=== PATIENT | female | born 1955 | race Caucasian/White ===

== ENCOUNTER → 2016-12-10 | Outpatient (CLI) | payer MEDICARE, MEDICAID ==
[~2016-12-10] MED LIST: ALDACTONE DPS25 MG PO; ATIVAN-DPS0.5 MG SL; CALCIUM 500 +1 EACH PO; CALTRATE-600 W600 MG PO; CEFTIN DPS500 MG PO; CELEXA40 MG PO; CLEOCIN HCL300 MG PO; CULTURELLE1 CAP PO; DECADRON-DPS4 MG PO; DUONEB DPS3 ML IH; EFFEXOR XR75 MG PO; ESOMEPRAZOLE MA40 MG PO; FEOSOL-DPS325 MG PO; IMODIUM DPS2 MG PO; KEPPRA DPS500 MG PO; KLOR-CON M2020 ME1 PO; LASIX DPS40 MG PO; LEVAQUIN DPS750 MG PO; LIORESAL DPS20 MG IM; LIORESAL DPS20 MG PO; MAALOX DPS30 ML PO; MARYS PO; MELATONIN10 M2 PO; MIRAPEX0.125 MG PO; MYCELEX TROCHE10 MG PO; MYRBETRIQ50 MG PO; NAPROSYN DPS500 MG PO; NEOSPORIN-DPS15 GM TP; NEXIUM40 MG PO; OMNICEF DPS300 MG PO; PENICILLIN V P500 MG PO; PEPCID DPS20 MG PO; PROAIR RESPICL90 MCG IH; PROLIA60 MG/ML IM; PROTONIX40 MG PO; SURFAK DPS240 MG PO; TRIMPEX DPS100 MG PO; TYLENOL DP650 MG/20. PO; TYLENOL DPS325 MG PO; VIBRAMYCIN-DPS100 M2 PO; VITAMIN B-1000 MCG/1 IM; VITAMIN D31000 UNIT PO; ZAROXOLYN5 MG PO; ZOFRAN ODT4 MG PO; [UNRECOGNIZED DRUG - OTHER] SL
== END | disposition home or self-care (01) ==
LOC: RAD.S 08:00
DX: R13.10 Dysphagia, unspecified (principal); K22.2 Esophageal obstruction; G35 Multiple sclerosis

== ENCOUNTER 2017-01-03 08:42 | Day surgery (SDC) | payer MEDICARE, MEDICAID ==
[~2017-01-03] VITALS: Ht 149.9 cm; Wt 105.1 kg
[~2017-01-03 08:42] MED LIST changes: -ATIVAN-DPS0.5 MG SL; -DECADRON-DPS4 MG PO; -LIORESAL DPS20 MG IM; -MARYS PO; -ZOFRAN ODT4 MG PO; -[UNRECOGNIZED DRUG - OTHER] SL
[2017-02-09] MEDS ORDERED: LIORESAL DPS20 MG IM (10:06)
[2017-02-09] MEDS ORDERED: LIORESAL DPS20 MG PO (10:18)
[2017-02-09] MEDS ORDERED: DECADRON-DPS4 MG PO (10:20)
[2017-02-09] MEDS ORDERED: MARYS PO (10:21)
[2017-02-09] MEDS ORDERED: ATIVAN-DPS0.5 MG SL (10:22)
[2017-02-09] MEDS ORDERED: ZOFRAN ODT4 MG PO (10:22)
[2017-02-09] MEDS ORDERED: [UNRECOGNIZED DRUG - OTHER] SL (10:24)
== END 2017-01-03 13:20 | disposition home or self-care (01) ==
LOC: RAD.S 08:42 → EDSTATUS 10:00 → RAD.S 13:20
PROC: 0DH63UZ Insertion of Feeding Device into Stomach, Percutaneous Approach (ICD-10-PCS; principal; 2017-01-03)
DX: C15.5 Malignant neoplasm of lower third of esophagus (principal); K44.9 Diaphragmatic hernia without obstruction or gangrene; Z79.899 Other long term (current) drug therapy; Z88.2 Allergy status to sulfonamides; Z88.6 Allergy status to analgesic agent; Z88.1 Allergy status to other antibiotic agents

== ENCOUNTER 2017-01-29 08:07 | Inpatient (IN) | payer MEDICARE, MEDICAID ==
[~2017-01-29] VITALS: Ht 149.9 cm; Wt 123.9 kg
--- NOTE | ~2017-01-29 | ECH ---
Transthoracic Echocardiography Report (TTE) Demographics Patient Name JIMMY SANDERS Date of Study 01/31/2017 Patient Number [id number] Visit Number [id number] Date of 1955 Room Number 423 Gender Female Number Age 62 year(s) Referring Luz Lutz Director Of Dance Beatrice Cross [facility] Physician Physician Interpreting King Carroll Mcneil MD Service Tech/Welder Physician Supervising Ordering Luz Lutz MD/MLP Physician Nurse Stress Aircraft Worker Conclusions Summary Technically difficult exam to perform with limited windows available. The estimated left ventricular ejection fraction is 60-65%. Mild to moderate left ventricular hypertrophy. The right atrium is mildly dilated. Mild tricuspid regurgitation by color Doppler. Estimated pulmonary pressures within normal limits, Procedure Type of Study TTE procedure:Echo Complete SF. Procedure Date Date: 01/31/2017 Start: 11:08 AM Technical Quality: Limited visualization due to poor acoustical window. Indications:Atrial fibrillation. Appropriate Use Criteria: 9 Height: 59 inches Weight: 234 pounds BSA: 1.97 m Rhythm: Atrial fibrillation HR: 93 bpm BP: 89/47 mmHg M-Mode/2D Measurements LV Diastolic Dimension: 4.01 cm LV Systolic Dimension: 3.37 cm LV Septum Diastolic: 1.35 cm LV PW Diastolic: 1.23 cm AO Root Dimension: 2.8 cm Cardiac Output: 5.91 l/min LA Dimension: 3.32 cm Cardiac Index: 3 l/min*m LA volume index: 30 ml/m LVOT: 1.86 cm RV Base: 5 cm LVOT VTI: 23.39 cm RV Mid: 3.1 cm LV Stroke volume: 63.52 ml RV Length: 6 cm LV Stroke volume index: 32.24 ml/m Doppler Measurements AV Peak Velocity: 1.76 m/s MV Peak E-Wave: 0.87 m/s AV Peak Gradient: 12.39 mmHg MV Peak A-Wave: 0.89 m/s AV Mean Gradient: 7.93 mmHg MV E/A Ratio: 0.98 LVOT Peak Velocity: 1.32 m/s MV P1/2t: 69.7 msec AV Area (Continuity):1.95 cm MV Deceleration Time: 240.4 msec TR Velocity:2.74 m/s MV Area (PHT): 3.16 cm TR Gradient:29.98 mmHg Estimated RAP:5 mmHg Estimated PASP: 34.98 mmHg Estimated RVSP: 35 mmHg RA Area: 21.54 cm Findings Left Ventricle The left ventricle is normal in size . Mild to moderate left ventricular hypertrophy. Diastolic function indeterminate due to patient's arrhythmia. Right Ventricle Normal right ventricular size and function. Left Atrium Normal left atrial size. Right Atrium The right atrium is mildly dilated. Mitral Valve Normal mitral valve structure and function. Aortic Valve The aortic valve was not well imaged. Tricuspid Valve Normal appearing tricuspid valve. Mild tricuspid regurgitation by color Doppler. Pulmonic Valve The pulmonic valve is not well visualized. Pericardial Effusion No evidence of pericardial effusion. Miscellaneous Visualized portions of the aortic root and ascending aorta appear normal in size. Pleural Effusion No evidence of pleural effusion. Signature
--- NOTE | 2017-01-30 12:02 | HP ---
ADMIT: 01/29/2017 RM/LOC: 423 [facility] MR#: [id number] [address] [address] [place] [address] History and Physical SEX: F AGE: 62 : 1955 DATE OF SERVICE: 01/29/2017 CHIEF COMPLAINT: Fatigue, weakness, and fall with right arm pain. HISTORY OF PRESENT ILLNESS: Lillian is a 62-year-old, , white female, followed by Dr. Escobar, admitted to [facility] through the ER. She is currently residing at home, and is going through chemotherapy for esophageal cancer. She received her last chemo treatment within the last week. She states she has been getting fatigued and weak and went to get up and slipped out of bed, heard pop and has had pain in her right shoulder. She was seen in the ER, an x-ray was obtained, and no acute fractures were noted. Further evaluation showed severe hyponatremia with sodium 129, potassium 2.5 with pancytopenia. I was subsequently contacted to admit her for further evaluation and management. At this time, she denies any new concern. She just states she is too weak at this time to go home. PAST MEDICAL HISTORY: Rather complicated and includes a feeding tube with her esophageal cancer along with a suprapubic catheterization for neurogenic bladder in the right port. She has had prior total abdominal hysterectomy, bilateral salpingo-oophorectomy for benign reasons, cholecystectomy, bilateral cataracts, vertebroplasty, right total knee, prior colon polyps, and urethroplasty. Illnesses include current esophageal carcinoma followed by Oncology locally, multiple sclerosis, morbid obesity, neurogenic bladder, compression fractures, lumbar spine, vitamin D deficiency, osteoporosis, Aktvkny-Wvduq-Uabdj syndrome, prior pulmonary embolisms, etc. MEDICATIONS: Listed in the chart. Please see a copy of her med list. Please copy of her med list dictation at this time. Most recent med list that I have is: 1. Effexor XR 75 mg daily. 2. Trimethoprim 100 mg daily. 3. Surfak 240 mg b.i.d. 4. Proventil 2 puffs p.o. q.i.d. p.r.n. 5. Pramipexole dihydrochloride 0.125 mg two t.i.d. 6. Potassium 20 mEq b.i.d. 7. Protonix 40 mg b.i.d. 8. Os-Sha 500 mg b.i.d. 9. Baclofen 20 mg five times daily. 10.Citalopram 40 mg daily. 11.Calcitonin 200 units one spray in alternating nostril daily. 12.Culturelle capsule once daily. 13.Ferrous sulfate 325 mg daily. 14.Lasix 80 mg b.i.d. 15.Vitamin D 1000 units 2 t.i.d. 16.Keppra 500 mg in the morning and 1000 mg at bedtime. 17.Melatonin 10 mg at bedtime. 18.Myrbetriq 50 mg daily. ADMIT: 01/29/2017 RM/LOC: 423 [facility] MR#: [id number] [facility] [address] [address] LILLIAN SANDERS [address] [place] [address] History and Physical SEX: F AGE: 62 : 1955 19.Naproxen 500 mg daily. ALLERGIES: CURRENTLY INCLUDE ADVAIR, CODEINE, ERYTHROPOIETIN, AND SULFA. SOCIAL HISTORY: That of a 62-year-old, , white female. She quit smoking around 3 years ago. She has a history of alcohol use disorder in remission for 40 years. She is wheelchair bound from her multiple sclerosis, has a baclofen pump, is followed by Jammie Hoyos for multiple sclerosis. FAMILY HISTORY: Includes coronary disease, thyroid disease, hypertension, osteoarthritis, colon cancer, Alzheimer's, and stroke. REVIEW OF SYSTEMS: As noted above. Remainder review of systems is negative. PHYSICAL EXAMINATION: VITAL SIGNS: Pulse of 56, blood pressure 104/84, she is currently afebrile with a sat of 93% on room air. Respiratory rate 16, heart rate 78. GENERAL APPEARANCE: Is that of a 62-year-old, morbidly obese white female, who appears much older than stated age. She has numerous bruises and evidence of severe venous insufficiency, lymphedema in her lower extremities, lying in hospital bed. She has moderate hair loss from her chemo. HEENT: Pupils are reactive. Membranes are moist. NECK: Supple. HEART: Regular with a grade 3-4/6 systolic murmur. LUNGS: Clear. ABDOMEN: Morbidly obese and benign. She has a right-sided port, a feeding tube and suprapubic catheter. EXTREMITIES: Reveal 3 to 4+ edema with bruising. No clubbing or cyanosis. NEUROLOGIC: Grossly normal light touch DTRs. LABORATORY AND X-RAY DATA: Sodium of 129, potassium 2.5, BUN of 49, creatinine 1.4 with glucose of 115, albumin is 3.2 with a total protein 5.8, AST is normal at 14, ALT normal at 19, white count of 0.9, hemoglobin 11.3, and platelet count 30,000. UA was not done. X-ray of the right humerus shows no acute fractures. 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 Please note, she additionally has venous insufficiency, mild malnutrition, and generalized fatigue and weakness. PLAN: We will start potassium and sodium replacement therapy. We will inform Oncology of admission, place her on DNR/DNI with POLST form per discussions as per patient request. We will proceed with further evaluation and management based on course during hospitalization. Please see her hospital record for the details. Tyson Fofana MD/ varsha JOB #: [id number] CC: Arnoldo Escobar, Attending Physician Arnoldo Escobar, Family Physician
--- NOTE | 2017-02-05 08:39 | ER ---
ADMIT: 01/29/2017 RM/LOC: 423 [facility] MR#: [id number] [id number] [place], [place] [address] JIMMY SANDERS [facility] [place] [address] Emergency Room Report SEX: F AGE: 62 : 1955 DATE: 01/29/2017 This 62-year-old female with esophageal cancer receiving radiation and chemotherapy, slid out of bed and landed on her right arm. She comes to the Emergency Department with complaints of right arm pain. She seems to be increasingly weak since receiving her chemo and radiation. She last saw Dr. Lopez this past Tuesday. She states other than weakness, she has been doing fine. She does have a diminished appetite. She denies fever, chills. No cough or cold. Merely complaining of pain in the right arm. PHYSICAL EXAMINATION: GENERAL: Reveals a 62-year-old female with ecchymotic areas across her entire body. She has a suprapubic catheter in place. LUNGS: Clear to auscultation. CARDIOVASCULAR: Bradycardic and irregular with a 3/6 systolic ejection murmur. ABDOMEN: Soft, nontender. EXTREMITIES: Significant for tenderness in the right arm. SKIN: As mentioned ecchymotic areas throughout. X-ray of the arm was negative. When I went in to speak with the patient, I was concerned about her ability to return home though that was her desire. Because of her increasing weakness and her now arrives, he is not certain he could lift her if she were to go to the floor again. Therefore CBC and CMP were obtained, the results of which were significant for a white count of 900, hemoglobin 11.3, and platelets 30,000. Sodium was 129, creatinine is 1.4, potassium 2.5, BUN of 49, and albumin 3.2. The patient was discussed with Dr. Fofana, he did see the patient in the Emergency Department, admitting the patient for acute renal failure, hyponatremia, hypokalemia, thrombocytopenia, neutropenia, and increasing weakness. Curtis Boone MD/ varsha JOB #: [id number] CC: Arnoldo Escobar MD, Attending Physician Arnoldo Escobar MD, Family Physician
--- NOTE | 2017-02-08 15:35 | CO ---
ADMIT: 01/29/2017 RM/LOC: [address] [facility] MR#: [id number] [id number] [place], [place] [address] [place] [address] Consultation SEX: F AGE: 62 : 1955 DATE OF CONSULTATION: 02/02/2017 ATTENDING PHYSICIAN: Arnoldo Escobar CONSULTING PHYSICIAN: Randy Rosales MD LOCATION OF SERVICE: [facility]. REASON FOR CONSULTATION: Dr. Escobar has requested our consultation for vocational guidance counselor, coordination of goals and options of care. HISTORY OF PRESENT ILLNESS: This is a pleasant 62-year-old elderly female, who was admitted through the Emergency Department on 01/29/2017 with fatigue, weakness, and a fall with right upper arm pain. She does carry a chronic diagnosis of multiple sclerosis and she is wheelchair bound functional status and does have a baclofen pump. She follows with Dr. Jammie Hill. She also has a known diagnosis of esophageal cancer, originally diagnosed November [address] Lopez. Her last chemotherapy treatment was reported to have occurred on January 25, 2017, and after she received this, she states she was getting fatigued and weak and slipped out of bed and fell and heard a pop and had right shoulder pain. In the Emergency Department, x-ray was obtained which was negative for acute fractures. Upon further evaluation, she was found to be severely hyponatremic with a sodium 129, potassium 2.5 and pancytopenia. She developed hypotension and acute hypoxia. She was admitted to our intensive care unit for further evaluation and treatment. She has been started on vasopressors with Levophed. Antibiotic therapy has been started as it is found that she has urinary tract infection. Urine culture on January 29 reveals E. coli and Klebsiella pneumoniae. There was also concern of pneumonia. We were requested for consultation to further review goals and options of care in light of failing health. Current functional state reflects a palliative performance score of 30. She is bed bound, unable to do any work, needing total care. Her intake is reduced. Her conscious level is full. She is alert and oriented x3. Prior to hospitalization her functional level reflects a palliative performance score of around 40. She spent most of the time in the bed or in a wheelchair. She is non ambulatory. She is unable to do any work, needing assistance with her self care. Her intake has been reduced. Her conscious level has been full. PAST MEDICAL HISTORY: Esophageal cancer, originally diagnosed in November 2016. She has had a feeding tube in place. She does have multiple sclerosis. She does have a neurogenic bladder with suprapubic catheterization in place. She has had a total abdominal hysterectomy, bilateral salpingo-oophorectomy for benign reasons, cholecystectomy, bilateral cataracts, vertebroplasty, right total knee repair, prior colon polyps, urethroplasty, morbidly obese, has had compression fractures in the lumbar spine, vitamin D deficiency, osteoporosis, Charcot Carito Tooth syndrome, history of pulmonary emboli. ADVANCED DIRECTIVE AND CODE STATUS: She is a do not resuscitate/do not ADMIT: 01/29/2017 RM/LOC: [address] [facility] MR#: [id number] [address] [place] [id number] JIMMY FELIPE [address] [place] [address] Consultation SEX: F AGE: 62 : 1955 intubate status. Her healthcare [id number]-vdzycuim is her spouse Willis Felipe his #[phone]. She reports she has completed this document, however, I do not have a copy of it at this time. SOCIAL HISTORY: She lives with her , Willis. She does have 4 children. She is Denominational. She has a history of smoking, quit around 3 years ago. She does have a history of alcohol use, in remission for 40 years. She does not report any cultural needs at this time. FAMILY HISTORY: Reviewed and noncontributory. CURRENT MEDICATIONS: Include: 1. Tysabri. 2. Solu-Cortef. 3. Zaroxolyn. 4. Effexor. 5. Trimpex. 6. Aldactone. 7. Myrbetriq. 8. Lasix. 9. Celexa. 10.Lioresal. 11.Ultram. 12.Tylenol. 13.Colace. 14.Omeprazole. 15.Mirapex. 16.Potassium. 17.Decadron. 18.Vitamin D. 19.Keppra. 20.Levophed. 21.DuoNeb. 22.Zosyn. 23.Levaquin. 24.Granix. 25.Proventil. 26.Heparin. 27.Maalox. 28.Normal saline. 29.Magnesium sulfate. ALLERGIES: SULFA, CODEINE, AND ERYTHROMYCIN. REVIEW OF SYSTEMS: A 10-point review of system was conducted, however, was unremarkable except as noted in HPI and PMH. PHYSICAL EXAMINATION: CONSTITUTIONAL: Weight, height, and BMI is within ADMIT: 01/29/2017 RM/LOC: [address] [facility] MR#: [id number] [facility] [address] [address] JIMMY FELIPE [address] [place] [address] Consultation SEX: F AGE: 62 : 1955 medical record. GENERAL STATUS: This is a pleasant, , elderly female, who appears older than stated age in no acute distress. Alert and oriented, able to participate fully in consultation at this time. VITAL SIGNS and CODE STATUS: She is a do not resuscitate/do not intubate status with temperature of 97.5, heart rate 101, respiratory rate 15, blood pressure 104/69, and she is on 2 L oxygen per nasal cannula oxygenating at 95%. HEENT: Head is normocephalic, atraumatic. She is not wearing glasses. Pupils are 3 mm, PERRLA. Hearing is intact bilaterally. Oral mucosa is dry. Dentition is worn. Anicteric sclerae. Conjunctivae pale. NECK: No lymphadenopathy. Trachea is midline. Supple. No JVD. RESPIRATORY: Respirations are regular without distress. Lung sounds are diminished with an expiratory wheeze. CARDIOVASCULAR: Rate and rhythm are regular. She does have a systolic murmur. EXTREMITIES: Upper and lower extremities are free of cyanosis or clubbing. She does have 4+ bilateral lower extremity edema. GASTROINTESTINAL: Abdomen is obese, nontender, nondistended. Positive bowel sounds in all 4 quadrants. INTEGUMENTARY: Skin is intact. Cool to touch. MUSCULOSKELETAL: Free of joint deformities. Does have generalized weakness. NEUROLOGICAL: Alert and oriented x3. She does follow commands. She is tearful with conversation. PSYCHIATRIC: Affect is appropriate. Insight is intact. She is cooperative to cares. DIAGNOSTIC DATA: Laboratory work reveals a sodium 133, potassium 3.7, chloride 95, creatinine 1.1, albumin 2.3. WBC 0.9, hemoglobin 8.1, hematocrit 23.6, and platelets 20. Urine on January 29 was positive for E. coli and Klebsiella pneumoniae. Radiology reports have been reviewed, please see MAR for details. IMPRESSION AND PLAN: 1. Physical debility. 2. Fatigue. 3. Malaise. 4. Malnutrition with albumin of 2.3. 5. Acute respiratory failure, hypoxia. 6. Sepsis with hypotension, currently on vasopressin support. 7. Pneumonia. 8. Urinary tract infection, Escherichia coli and Klebsiella pneumoniae identified. 9. Neutropenic fever. 10.Pancytopenia. 11.Esophageal cancer, history of chemotherapy, last on 01/25/2017. Follows with Dr. Lopez. History of PEG tube insertions for feedings. 12.Multiple sclerosis- Wheel chair bound functional status. 13.History of suprapubic catheter secondary to neurogenic bladder. ADMIT: 01/29/2017 RM/LOC: [address] [place] [address] MR#: [id number] [address] [address] [place] [address] Consultation SEX: F AGE: 62 : 1955 14.Obesity. 15.Palliative care. 16.Do not resuscitate/do not intubate status. I did have a long talk with Mrs. Felipe and her at the bedside. We reviewed her critical health concerns at this time along with her chronic health concerns. She verbalizes understanding and becomes tearful, but is very open and welcoming to this consultation. We did review code status options, full code versus do not resuscitate/do not intubate status with benefits versus burdens, and she does verbalize understanding and continues to direct a do not resuscitate/do not intubate status. She further explains that her #1 goal is to "I hope to see improvement, but if it is my time to it is my time. I am realistic." Much support given at this difficult time. Mrs. Felipe and her hope to see improvement with continued plan of care, but if decline occurs, they are open to comfort cares and we have discussed this option. Mrs. Felipe also states "I want Addison to help me with my obituary and I think, we will do that today." She also would like to speak with her daughter and I encouraged her to reach out to her sooner rather than later. Much support given at this difficult time as well as encouragement to "keep up the fight." I have discussed this consultation with nursing care and we will continue to follow. Mrs. Felipe was seen in collaboration with Dr. Randy Rosales who agrees with the above assessment, discussion, and plan. I would like to thank Dr. Escobar for the invitation to participate in Mrs. Novsad's hospital course. Total consultation time was from 0926 hours to 1000 hours on 02/02/2017 by the palliative Medicine [employer]. Greater than 50% of this time was spent in vocational guidance counselor and coordination of goals and options of care at the bedside. Rosi Perez APRN / Randy Rosales MD / varsha JOB #: [id number] CC: Arnoldo Escobar, Attending Physician Arnoldo Escobar, Family Physician
[2017-02-09] MEDS ORDERED: LIORESAL DPS20 MG IM (10:06)
[2017-02-09] MEDS ORDERED: LIORESAL DPS20 MG PO (10:18)
[2017-02-09] MEDS ORDERED: DECADRON-DPS4 MG PO (10:20)
[2017-02-09] MEDS ORDERED: MARYS PO (10:21)
[2017-02-09] MEDS ORDERED: ATIVAN-DPS0.5 MG SL (10:22)
[2017-02-09] MEDS ORDERED: ZOFRAN ODT4 MG PO (10:22)
[2017-02-09] MEDS ORDERED: [UNRECOGNIZED DRUG - OTHER] SL (10:24)
--- NOTE | 2017-02-25 10:58 | CO ---
ADMIT: 01/29/2017 RM/LOC: 423 [facility] MR#: [id number] [address] [address] [place] [address] Consultation SEX: F AGE: 62 : 1955 DATE OF CONSULTATION: 01/29/2017 ATTENDING PHYSICIAN: Arnoldo Escobar CONSULTING PHYSICIAN: Gen Tejada MD REASON FOR HEMATOLOGY CONSULTATION: 1. Severe neutropenia and thrombocytopenia. 2. Esophageal cancer on active treatment with chemoradiation. HISTORY AND PHYSICAL: Mrs. Felipe is a 62-year-old pleasant woman with history of multiple sclerosis for which she is getting treatment with natalizumab every four weeks for almost a year, was recently diagnosed with history of esophageal cancer on November of 2016. She is currently on treatment with chemotherapy and radiation treatment. She gets Carbotaxol weekly. Her last treatment of chemotherapy was on January 25, 2017. Her last multiple sclerosis treatment was two weeks ago. I am covering for my colleague Dr. Lopez. Therefore, Oncology was consulted to see for her severe neutropenia and thrombocytopenia as well as for her esophageal cancer. As per the patient, she was extremely fatigued and tired, not even able to move. She was sleeping all day. She was falling due to extremely severe weakness and fatigue. Therefore, she came to the ER. She was found to have severely neutropenic with WBC count of 0.9, and a platelet count of 30,000. She also had electrolyte abnormalities as well as elevated LFTs, therefore, she was hospitalized for further evaluation and management. She denies any shortness of breath. Denies any fever. No diarrhea, no nausea, no vomiting, except severe fatigue, is bothering her quality of life. PAST MEDICAL HISTORY: Esophageal cancer and multiple sclerosis. 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 Currently, she does not smoke, does not drink. FAMILY HISTORY: History of colorectal cancer in the family as well as COPD and also esophageal cancer in her grandfather. ALLERGIES: NO KNOWN DRUG ALLERGIES. REVIEW OF SYMPTOMS: GENERAL: Not in acute distress. CARDIOVASCULAR: No chest pain. RESPIRATORY: No shortness of breath. GENITOURINARY: No urgency. No frequency. GASTROINTESTINAL: No nausea, no vomiting, no diarrhea. ENDOCRINOLOGY: No polyuria. No polydipsia. INFECTION: No fever. NUTRITION: Adequate. SKIN: No rashes. NEUROLOGIC: Awake, alert, and oriented. CONSTITUTIONAL SYMPTOMS: The only thing she has is severe fatigued and tired, ADMIT: 01/29/2017 RM/LOC: 423 [facility] MR#: [id number] [address] [place] [id number] JANENEJACOB KochH Byron [address] [place] [address] Consultation SEX: F AGE: 62 : 1955 and unable to move and do things as usual. PHYSICAL EXAMINATION: VITALS SIGNS: Temperature is 99.3, pulse 113, blood pressure 100/46, and sat 94%. HEENT: Normocephalic and atraumatic. LUNGS: Clear. HEART: S1, S2 heard. Regular rate and rhythm. ABDOMEN: Soft, nontender, and nondistended. Positive bowel sounds. EXTREMITIES: No edema. NEUROLOGIC: Awake, alert, and oriented x3. No focal neurological deficit. LYMPHATICS: No palpable lymph node palpated. SKIN: No rashes. LABORATORY DATA: WBC 0.9, hemoglobin 11.3, and platelets 30. Her sodium is 129, potassium 2.5, creatinine 1.4, total bilirubin 1.8. Normal AST and ALT. IMPRESSION AND RECOMMENDATIONS: Mrs. Felipe is a 62-year-old pleasant woman with history of multiple sclerosis, on active treatment, was diagnosed with esophageal cancer in November of 2016, admitted due to severe fatigue and not able to do anything and tired. She is receiving active chemotherapy and radiation treatment for cancer. 1. Extreme fatigue and malaise, could be from her chemotherapy and dehydration. She is actively getting chemoradiation treatment that could be also other reason. She is also not enough hydrating herself. I have advised the patient to drink enough water as much as she can. We will also give her enough hydration here. We will watch closely. The patient was also advised to sleep enough and well. 2. Esophageal cancer, on active treatment with Carbotaxol weekly for concurrent with radiation treatment. Her last treatment was on January 25. 3. Severe neutropenia with WBC count of 0.9. She will be on neutropenic precautions. I will give a dose of Granix 480 mcg x1 dose and to follow up her white blood cell count tomorrow again, and we will re-dose her if needed. No signs of infection and no fevers. Thrombocytopenia, severe from chemotherapy. Her neutropenia is also from chemotherapy. No signs of any bleeding. We will watch closely. No anticoagulation because of the thrombocytopenia. She can have Venodyne boots. I will watch her platelet count, if her platelet count goes below 10, then we will probably need a unit of platelet transfusion. 4. Increased bilirubin, likely from the treatment. We will watch and monitor the bilirubin count. 5. Electrolyte abnormalities. The patient will need potassium, and possible magnesium replacement. She will also get normal saline. She does have ADMIT: 01/29/2017 RM/LOC: 423 [facility] MR#: [id number] [address] [place] [id number] JIMMY FELIPE [address] [place] [address] Consultation SEX: F AGE: 62 : 1955 hyponatremia as well. We watch it closely and monitor CMP. 6. Multiple sclerosis. On the natalizumab monoclonal antibody every four weeks, last treatment was two weeks ago. She will continue that for ever. I have discussed in detail with the patient about the management plan and also the lab that is needed. We will continue hydration. We will check her CBC and CMP as well as magnesium tomorrow. I have told the patient, she cannot have Lovenox or any anticoagulation at this point of time, due to low platelet count, but she can get Venodyne boots for now. Thank you for your consultations and the opportunity in taking care of your patient. I will follow the patient with you. Gen Tejada MD/ varsha JOB #: [id number] CC: Arnoldo Escobar, Attending Physician Arnoldo Escobar, Family Physician
--- NOTE | 2017-02-26 12:17 | DS ---
ADMIT: 01/29/2017 RM/LOC: 517 [facility] MR#: [id number] [id number] [place], [place] [address] [place] [address] General Discharge Summary SEX: F AGE: 62 : 1955 ADMISSION DATE: 01/29/2017 DISCHARGE DATE: 02/08/2017 FINAL DIAGNOSES: 1. Increasing weakness with severe hyponatremia and hypokalemia. 2. Onset of acute respiratory distress with history of asthma. 3. Fever in the setting of chemoradiation and pancytopenia. 4. Known esophageal carcinoma - currently undergoing chemotherapy. 5. Indwelling J-tube for nutrition with tube feedings. 6. Suprapubic catheter for neurogenic bladder. 7. Multiple sclerosis - long-term - wheelchair bound. 8. Exogenous morbid obesity. 9. Prior compression fractures. 10.Vitamin D deficiency. 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 12.Prior pulmonary embolism. 13.Escherichia coli and Klebsiella pneumoniae urinary tract infection. BRIEF HISTORY: This is a 62-year-old, woman came to the emergency room, having been at home going through chemotherapy for esophageal cancer. Her last chemo treatment was a week prior to this admission. She states she had been getting increasingly fatigued and weak and went to get out of bed, fell, and heard a pop with pain in her right shoulder. When seen in the ER, x- ray was obtained and no acute fractures were noted. However, she had severe hyponatremia and hypokalemia. Given her symptoms, it was felt best to admit her for further evaluation and treatment. SIGNIFICANT LAB AND X-RAY: On admission, CBC showed hemoglobin of 11.3 with essentially normal indices, white count of 0.9, and platelets of 30,000. Serial CBCs were followed. Her white count reached its bigg on 02/04/2017 at 0.4 with a hemoglobin of 8.4, and platelets of 18. Serial CBCs were followed, and by 02/05/2017, her hemoglobin was 8.4, platelets of 51,000, and white count of 5200. On 02/06, INR was 1.17 with a PTT of 30.6 seconds (normal 25 to 31), fibrinogen of 635 mg/dL (normal 200 to 400), D-dimer of 2.65 ug/mL (0.19 to 0.50). At that point, her platelets were 49,000. On admission, CMP showed a sodium of 129 mmol/L, potassium of 2.5 mmol/L, CO2 of 41 mmol/L (normal 22 to 32), creatinine of 1.4 mg/dL, total bilirubin of 1.8 mg/dL, total protein/albumin of 5.8 to 3.2 g/dL. The remainder of the CMP was normal. Lactic acid on admission was 2.8 mmol/L. Serial chemistries were followed. By 02/02, her lactic acid was 1.1 mmol/L. On 02/06, proBNP was 6441 pg/mL. On 02/06, serum iron was 64 ug/dL (normal 37 to 170), with total iron-binding ADMIT: 01/29/2017 RM/LOC: 517 [facility] MR#: [id number] [address] [place] [phone] JIMMY SANDERS [address] [place] [address] General Discharge Summary SEX: F AGE: 62 : 1955 capacity of 166 ug/dL (normal 250 to 450). By 02/05, CMP showed normal electrolytes, normal BUN/creatinine, calcium 7.7 mg/dL, total protein/albumin of 5.3/2.2 g/dL. On 02/01, arterial blood gases showed a measured pH at 7.5, measured pCO2 of 41.7 mmHg and measured PO2 of 78.7 mmHg. On 02/06, B12 was greater than 2000 pg/mL, folate was 4.8 ng/mL (normal 3.2 to 20), ferritin was 1307 ng/mL (normal 8 to 250), with haptoglobin of 282 mg/dL (normal 30 to 200). On 02/06, urinalysis showed 2+ protein, 2+ blood, 2+ leukocyte esterase. On 01/29, urine culture grew E. coli greater than 100,000 colonies and Klebsiella pneumoniae greater than 50,000 colonies sensitive to all antibiotics tested, but for ampicillin/Augmentin with E. coli resistant to Cipro and levofloxacin. The patient's blood type is O, Rh positive with a negative antibody screen. On 02/03, CT scan of the chest showed "moderate bilateral pleural effusions, larger on the right." Bibasilar consolidation and volume loss on the right, consolidation/infiltrates upper lobe as well as left perihilar region. On 02/04, she underwent a 14-Cymraes gastrostomy tube exchange through Interventional Radiology. On 01/29, x-rays of her right shoulder and humerus showed no fracture dislocation identified. Chest x-ray of 02/01, was read as "impression: 1. Cardiomegaly, mild interstitial edema. 2. Right lower lobe opacities and effusion, concomitant pneumonia cannot be excluded.". Serial chest x-rays were followed and by 02/06, it was read as "impression: Bilateral pneumonia more severe on the right than the left, unchanged from previous exam." On 02/05, she underwent thoracentesis, which was not particularly successful as they only got some blood out of the pleural space. On 01/31, echocardiogram showed "an estimated ejection fraction of 60% to 65%, [id number] left ventricular hypertrophy, right atrium is mildly dilated, mild tricuspid regurgitation by color Doppler, estimated pulmonary pressures within normal limits." ADMIT: 01/29/2017 RM/LOC: 517 [facility] MR#: [id number] [address] [address] [place] [address] General Discharge Summary SEX: F AGE: 62 : 1955 EKG on 01/29 was read as "atrial fibrillation with rapid ventricular response, possible left anterior fascicular block, anteroseptal lateral ST-T abnormality may be due to myocardial ischemia. Abnormal ECG compared to 07/27/2016, no significant change" and so she has another diagnosis and that would be chronic atrial fibrillation. HOSPITAL COURSE: The patient was admitted through the emergency room to telemetry with routine telemetry orders and IV of D5 normal saline with 40 of KCl was run at 150 mL/hour following a 500 mL of normal saline bolus with 40 of KCl. She was maintained in her "do not resuscitate/do not intubate status" per her previous request. Oncology consult was requested. She was started on Lovenox 40 mg subcu daily. Routine central line standing orders were initiated. Following Dr. Tejada's consult, she was given Granix 480 mcg x1 dose. Her Lovenox was subsequently held because of her low platelets. Over the next couple of days, adjustments were made in her IV medications and fluids. She was transfused 1 unit of platelets on 01/30/2017 per Oncology. She was seen by Social Service, Physical Therapy, and Occupational Therapy and Supportive Care. By 02/01 (day 3), she has spiked a temp to 101, that morning. She was mildly dyspneic. She was started on Zosyn 3.375 g IV q.8 hours and Levaquin 500 mg IV daily following return of her initial urine findings. She was on tramadol 50 mg q.6 hours p.r.n. pain and Ativan 0.5 mg IV for anxiety. She was started on DuoNeb as she was getting increasingly short of breath. Pulmonary consultation was requested, and they were kind enough to see her. She was given DuoNeb q.i.d. and started on Zaroxolyn 5 mg t.i.d. x24 hours. She was transferred to ICU with critical care standing orders. 1 L of normal saline bolus was given for low blood pressures and Levophed per protocol was initiated to maintain her MAP greater than 65. Hydrocortisone 60 mg IV q.6 hours was initiated by Critical Care. Anesthesia was asked to place an art line. She was given 2 g of calcium gluconate IV over an hour and 500 mL of 5% albumin. Subsequently, her vasopressin drip was initiated. All of her medications were changed to per gastric tube. On 02/02, she had been afebrile for greater than 24 hours after 1 day in the ICU. She was still on pressors. Palliative Care consult was requested, and they were kind enough to see her. They have indicated she would like to continue treatment until her daughter could arrive from [place]. On 02/02, her vasopressin and IV Ativan were discontinued. Solu-Medrol was decreased to 50 mg daily. She was continually given mag sulfate and red blood cell transfusions. By 02/02, she had worsening short of breath, so BiPAP was initiated, which did not tolerate well and subsequently indicated she did not want to continue. By 02/03 (day 5), she was alert and "feeling better." Her pre-hospital protein replacement per G tube was re-initiated. She was allowed trazodone for sleep, and Protonix 40 mg IV daily was initiated. Short-stay surgery replaced her suprapubic catheter. ADMIT: 01/29/2017 RM/LOC: 517 [facility] MR#: [id number] [facility] [address] [address] JIMMY SANDERS [address] [place] [address] General Discharge Summary SEX: F AGE: 62 : 1955 By 02/03, her Solu-Medrol was discontinued by Critical Care. Her Levaquin was also discontinued. She was on Jammie's magic mouthwash. Subsequent further transfusions of packed red blood cells were given. She continued to be followed by Supportive Care. She refused physical therapy. By 02/05, she had given 2 units of platelets. She had continued tachycardia, so 25 mg of Lopressor q.8 hours given per G tube. On 02/05, Oncology ordered the thoracentesis, which of course was not successful. By 02/06, she was unable to tolerate most positioning. She was felt "okay except for the breathing." She was placed on high-flow O2 as tolerated. Continued discussions of palliative care were continued. Ativan IV was re- initiated. Later on 02/06 in the mid afternoon, she requested comfort measures only. The O2 sat monitor was removed. By 02/07 (day 9), she made the decision to proceed with comfort measures and hospice consult was requested. Appropriate medications per hospice were ordered. Later on 02/08, she was transferred home on hospice care. DISCHARGE MEDICATIONS: On dismissal, her medications included: 1. Celexa 40 mg daily. 2. Decadron 4 mg b.i.d. 3. Effexor 75 mg daily. 4. Keppra 500 mg to 1000 mg b.i.d. 5. Lasix 80 mg daily. 6. Lioresal 20 mg in the a.m. and 40 mg at 1800 and 2100. 7. Mirapex 0.25, 1-1/2 tabs t.i.d. 8. Myrbetriq 50 mg daily. 9. Zaroxolyn 5 mg daily. PRN orders for: 1. Jammie's magic mouthwash. ADMIT: 01/29/2017 RM/LOC: 517 [facility] MR#: [id number] [address] [facility] [address] [place] [id number] JIMMY SANDERS [address] [place] [address] General Discharge Summary SEX: F AGE: 62 : 1955 2. Zofran. 3. Proventil. 4. Maalox. 5. Lorazepam. 6. Roxanol. 7. Ativan. CONDITION ON TRANSFER: Stable on the above treatment. FINAL DISPOSITION: As noted. PROGNOSIS: Dismal. Arnoldo Escobar MD/ varsha JOB #: [id number] CC: Aronldo Escobar MD, Attending Physician Arnoldo Escobar MD, Family Physician
--- NOTE | 2017-04-04 17:24 | CO ---
ADMIT: 01/29/2017 RM/LOC: 307 [facility] MR#: [id number] [address] [address] [place] [address] Consultation SEX: F AGE: 62 : 1955 DATE OF CONSULTATION: 02/01/2017 ATTENDING PHYSICIAN: Arnoldo Escobar CONSULTING PHYSICIAN: Tristin Day MD REASON FOR CONSULTATION: Assessment for possible transfer to the intensive care unit. HISTORY OF PRESENT ILLNESS: Mrs. Felipe is a 62-year-old woman, who has had a history of multiple sclerosis as well as esophageal cancer that she had been treated with radiation chemotherapy, presented to the Hospital Emergency Department with what she complained at that time was diminished appetite as well as increasing weakness during her course of chemoradiation therapy. Our course in the hospital was found the patient in the a.m. of my visit was found to be progressive dyspnea with increasing wheezes and increasing expiratory effort. Consultation was made to advise the patient required intensive care monitoring. PAST MEDICAL HISTORY: 1. Esophageal cancer. 2. MS. 3. History of asthma. 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 Has no history of smoking or drinking. FAMILY HISTORY: Colorectal cancer as well as COPD and esophageal cancer in her grandfather. ALLERGIES TO MEDICATIONS: No known medical allergies. REVIEW OF SYSTEMS: Unable to be completed as the patient is currently mildly sedated with Ativan, is unable to answer questions appropriately. PHYSICAL EXAMINATION: VITAL SIGNS: The patient's current temperature is 100.9, pulse of 96, respiratory rate 16, blood pressure of 95/45, and saturating 96% on 4 L of nasal cannula. GENERAL: The patient is generally appearing her stated age. Does not appear in acute distress, however, episode of long wheezy expiratory time. HEART: Regular rate and rhythm. No murmurs, gallops, or rubs noted on exam. CHEST: Bilaterally has rhonchus with expiratory wheezes are noted. ABDOMEN: Soft. Obese. Positive bowel sounds. HEENT: Her head appears to be normocephalic. NECK: Supple. NEUROLOGIC: The patient does follow commands with equal strength in both her upper and lower extremities. Her extremity shows no signs of clubbing or cyanosis that she has marked bruises noted in her upper and lower extremities with her lower extremity show a 3+ edema. ADMIT: 01/29/2017 RM/LOC: 307 [facility] MR#: [id number] [address] [address] JIMMY FELIPE [address] [place] [address] Consultation SEX: F AGE: 62 : 1955 DIAGNOSTIC STUDIES: Her phos is 0.9. Her mag is 1.3. Her comprehensive metabolic profile show sodium 133, potassium 3.7, chloride 92, CO2 of 35, her BUN is 19, her creatinine is 1.2, her glucose is 106, her AST and ALT are 18 and 21, and her mag is 1.3. Her CBC shows a white blood cell count of 0.6, hemoglobin 7.7, hematocrit 23.4, and her platelets 24. Her chest x-ray shows cardiomegaly with noted interstitial edema with right lower lobe metastasis and effusion. No infiltrate can be ruled out. ARGELIA show ventricular ejection fraction of 60% to 65% with mildly dilated right atrium with mild TR and estimated pulmonary pressures within normal limits. ASSESSMENT AND PLAN: This is a 62-year-old female appears to be: 1. Acute respiratory distress. Currently on 4 L of nasal cannula. Saturating 94% with expiratory wheezes, with history of asthma on home inhaler use. 2. Fevers in the setting of post chemoradiation therapy and neutropenia. 3. History of hypophosphatemia. 4. Pancytopenia. 5. Esophageal cancer. 6. Acute kidney injury. According to the plan, at this time, we will start the patient on some DuoNebs with q.i.d. dosing and p.r.n. as needed and was present for the patient's first DuoNeb treatment where the patient had significant resolution of expiratory wheezes as well as her prolonged expiratory time. We will carefully monitor the patient, increase her diuresis over next 24 hours as she does have component of interstitial edema on her chest x-ray. I did increase her Zaroxolyn for 24 hours as well as give her dose of Bumex. We will have a low threshold to transfer the patient to the ICU and BiPAP as needed or at this time, the patient appears to be hemodynamically stable. Appreciate primary care service for the consultation of this patient. Tristin Day MD/ varsha JOB #: [id number] CC: Arnoldo Escobar, Attending Physician Arnoldo Escobar, Family Physician
== END 2017-02-08 11:45 | disposition hospice, home (50) | DRG 682 ==
LOC: ER 08:07 → 4PCU 10:20 → 3ICU 10:20 → 5MS 02-06 20:00
PROVIDERS: ADMIT Family Medicine
PROC: 30233R1 Transfusion of Nonautologous Platelets into Peripheral Vein, Percutaneous Approach (ICD-10-PCS; 2017-01-30)
PROC: 03HY32Z Insertion of Monitoring Device into Upper Artery, Percutaneous Approach (ICD-10-PCS; principal; 2017-02-01)
PROC: 30233K1 Transfusion of Nonautologous Frozen Plasma into Peripheral Vein, Percutaneous Approach (ICD-10-PCS; 2017-02-02)
PROC: 30233N1 Transfusion of Nonautologous Red Blood Cells into Peripheral Vein, Percutaneous Approach (ICD-10-PCS; 2017-02-03)
DX: N17.9 Acute kidney failure, unspecified (principal); A41.9 Sepsis, unspecified organism; J96.01 Acute respiratory failure with hypoxia; R65.21 Severe sepsis with septic shock; D61.810 Antineoplastic chemotherapy induced pancytopenia; J18.9 Pneumonia, unspecified organism; C15.9 Malignant neoplasm of esophagus, unspecified; D70.9 Neutropenia, unspecified; E87.1 Hypo-osmolality and hyponatremia; E44.1 Mild protein-calorie malnutrition; N39.0 Urinary tract infection, site not specified; Z68.42 Body mass index [BMI] 45.0-49.9, adult; Z51.5 Encounter for palliative care; N31.9 Neuromuscular dysfunction of bladder, unspecified; B96.20 Unspecified Escherichia coli [E. coli] as the cause of diseases classified elsewhere; B96.1 Klebsiella pneumoniae [K. pneumoniae] as the cause of diseases classified elsewhere; E87.6 Hypokalemia; R50.81 Fever presenting with conditions classified elsewhere; E86.0 Dehydration; I87.2 Venous insufficiency (chronic) (peripheral); G35 Multiple sclerosis; E66.01 Morbid (severe) obesity due to excess calories; E55.9 Vitamin D deficiency, unspecified; R79.89 Other specified abnormal findings of blood chemistry; M81.0 Age-related osteoporosis without current pathological fracture; G60.0 Hereditary motor and sensory neuropathy; Z86.711 Personal history of pulmonary embolism; Z87.891 Personal history of nicotine dependence; Z99.3 Dependence on wheelchair; Z82.49 Family history of ischemic heart disease and other diseases of the circulatory system; Z96.651 Presence of right artificial knee joint; Z93.1 Gastrostomy status; Z66 Do not resuscitate; E83.39 Other disorders of phosphorus metabolism